=== PATIENT | female | born 1955 | race Caucasian/White ===

== ENCOUNTER 2018-10-18 10:57 | Outpatient (CLI) | payer BC, MEDICAID ==
[~2018-10-18] VITALS: Ht 157.5 cm; Wt 79.4 kg
[~2018-10-18 10:57] MED LIST: ONDA4TAB6 PO
[2018-10-18] MEDS ORDERED: OXYB10TA4 PO (11:57)
[2018-10-18] MEDS ORDERED: OMEP20TA23 PO (11:57)
[2018-10-18] MEDS ORDERED: INSU100V9 SQ (11:57)
[2018-10-18] MEDS ORDERED: ESCI10TA PO (11:57)
[2018-10-18] MEDS ORDERED: TRAZ150T78 PO (11:57)
[2018-10-18 12:09] LABS: BASOPHILS # (AUTO) 0.1 X10'3 (0-0.2); BASOPHILS % (AUTO) 0.6 % (0-1); EOSINOPHILS # (AUTO) 0.1 X10'3 (0-0.9); EOSINOPHILS % (AUTO) 0.7 % (0-6); LYMPHOCYTES # (AUTO) 1.4 X10'3 (1.1-4.8); LYMPHOCYTES % (AUTO) 13.2 % (21-51); MEAN CORPUSCULAR HEMOGLOBIN 29.7 PG (27.0-31.0); MEAN CORPUSCULAR HGB CONC 33.7 g/dL (33.0-36.5); MEAN CORPUSCULAR VOLUME 87.9 FL (78-98); MEAN PLATELET VOLUME 8.7 FL (7.4-10.4); MONOCYTES # (AUTO) 0.7 X10'3 (0-0.9); MONOCYTES % (AUTO) 6.2 % (2-12); NEUTROPHILS # (AUTO) 8.5 X10'3 (1.8-7.7); NEUTROPHILS % (AUTO) 79.3 % (42-75); PRE OP HEMATOCRIT 36.4 % (35.0-45.0); PRE OP HEMOGLOBIN 12.3 g/dL (12.0-16.0); PRE OP PLATELET COUNT 260 X10'3 (140-440); RED BLOOD COUNT 4.14 X10'6 (4.20-5.60)
[2018-10-18 12:23] LABS: HEMOGLOBIN A1C 13.1 % (4.5-6.2)
[2018-10-18 12:34] LABS: ALBUMIN 2.9 G/DL (3.4-5.0); ALBUMIN/GLOBULIN RATIO 0.8 (1.1-1.5); ALKALINE PHOSPHATASE 70 IU/L (46-116); BLOOD UREA NITROGEN 9 MG/DL (7-18); BUN/CREATININE RATIO 9.1 (6.6-38.0); CALCIUM 8.7 MG/DL (8.5-10.1); CHLORIDE 100 MMOL/L (99-107); CREATININE 0.99 MG/DL (0.40-0.90); PRE OP ALT 23 U/L (30-65); PRE OP ANION GAP 5 (8-16); PRE OP AST 18 U/L (10-37); PRE OP BILIRUB, TOTAL 0.3 MG/DL (0.0-1.0); PRE OP POTASSIUM 4.3 MMOL/L (3.4-5.1); PRE OP SODIUM 137 MMOL/L (135-145); TOTAL CARBON DIOXIDE 32.5 MMOL/L (24-32); TOTAL PROTEIN 6.6 G/DL (6.4-8.2); eGFR 57 ML/MIN
[2018-10-18 12:37] LABS: PRE OP GLUCOSE 332 MG/DL (70-104)
[2018-10-18 12:41] LABS: CLARITY,URINE SLIGHTLY CLOUDY (Clear); COLOR,URINE YELLOW (Yellow); GLUCOSE, URINE >=1000 mg/dl (Neg); KETONES,URINE NEGATIVE (Neg); LEUKOCYTE ESTERASE ,URINE NEGATIVE (Neg); NITRITES, URINE NEGATIVE (Neg); OCCULT BLOOD,URINE MODERATE (Neg); PROTEIN,URINE >=300 mg/dl (Neg); UROBILINOGEN,URINE 0.2 E.U/dL (0.2-1.0)
[2018-10-18 12:54] LABS: UA COLLECTION TYPE NON-SPECIFIED
[2018-10-18 13:05] LABS: HYALINE CASTS 0-3 /LPF (NEGATIVE); MUCUS STRANDS NONE SEEN /LPF (Neg); SQUAMOUS EPITHELIAL CELL,UR MANY /LPF (FEW)
[2018-10-18 13:06] LABS: BACTERIA,URINE 1+ /HPF (Neg); RBC,URINE 0-2 /HPF (0-2); WBC,URINE 0-4 /HPF (0-4)
[2018-10-24] MEDS ORDERED: ceFOXitin 2 GM ADDVANTGE BAG 50 ML IV ONE (06:00)
[2018-10-24] MEDS ORDERED: ringers solution, lacted 1,000 ML IV SCH (06:00)
[2018-10-24] MEDS ORDERED: famotidine 20mg tablet PO ONE (06:00)
== END 2018-10-18 23:59 | disposition home or self-care (01) ==
LOC: PRE-OP 10:57 → EDSTATUS 10-24 22:00
PROVIDERS: ATTEND Surgery
DX: Z01.818 Encounter for other preprocedural examination (principal); K80.20 Calculus of gallbladder without cholecystitis without obstruction; Z87.891 Personal history of nicotine dependence
CPT/HCPCS: 36415; 80053; 81001; 83036; 85025; J0694; J7120

== ENCOUNTER 2018-11-07 10:49 | Day surgery (SDC) | payer BC, MEDICAID ==
[~2018-11-07] VITALS: Ht 157.5 cm; Wt 82.1 kg
[~2018-11-07 10:49] MED LIST changes: +ESCI10TA PO; +INSU100V9 SQ; +OMEP20TA23 PO; -ONDA4TAB6 PO; +OXYB10TA4 PO; +TRAZ150T78 PO
[2018-11-07 11:03] VITALS: BP 164/81
[2018-11-07] MEDS ORDERED: ceFOXitin 2 GM ADDVANTGE BAG 50 ML IV ONE (11:30)
[2018-11-07] MEDS ORDERED: ringers solution, lacted 1,000 ML IV SCH (11:30)
[2018-11-07] MEDS ORDERED: famotidine 20mg tablet PO ONE (11:30)
[2018-11-07] MEDS ORDERED: LISI10TA4 PO (11:39)
[2018-11-07] MEDS ORDERED: METO-467 PO (11:39)
[2018-11-07 12:16] LABS: BASOPHILS # (AUTO) 0.1 X10'3 (0-0.2); BASOPHILS % (AUTO) 1.4 % (0-1); EOSINOPHILS # (AUTO) 0.2 X10'3 (0-0.9); EOSINOPHILS % (AUTO) 1.8 % (0-6); LYMPHOCYTES # (AUTO) 1.8 X10'3 (1.1-4.8); LYMPHOCYTES % (AUTO) 18.5 % (21-51); MEAN CORPUSCULAR HEMOGLOBIN 29.8 PG (27.0-31.0); MEAN CORPUSCULAR VOLUME 87.7 FL (78-98); MEAN PLATELET VOLUME 9.2 FL (7.4-10.4); MONOCYTES # (AUTO) 0.7 X10'3 (0-0.9); MONOCYTES % (AUTO) 7.8 % (2-12); NEUTROPHILS # (AUTO) 6.7 X10'3 (1.8-7.7); NEUTROPHILS % (AUTO) 70.5 % (42-75); PRE OP HEMATOCRIT 35.8 % (35.0-45.0); PRE OP HEMOGLOBIN 12.2 g/dL (12.0-16.0); PRE OP PLATELET COUNT 226 X10'3 (140-440); RED BLOOD COUNT 4.08 X10'6 (4.20-5.60); RED CELL DISTRIBUTION WIDTH 15.1 % (11.5-14.5)
[2018-11-07 12:30] LABS: ALBUMIN 3.2 G/DL (3.4-5.0); ALBUMIN/GLOBULIN RATIO 0.9 (1.1-1.5); ALKALINE PHOSPHATASE 71 IU/L (46-116); BLOOD UREA NITROGEN 11 MG/DL (7-18); BUN/CREATININE RATIO 14.9 (6.6-38.0); CALCIUM 8.9 MG/DL (8.5-10.1); CHLORIDE 106 MMOL/L (99-107); CREATININE 0.74 MG/DL (0.40-0.90); PRE OP ALT 16 U/L (30-65); PRE OP ANION GAP 7 (8-16); PRE OP BILIRUB, TOTAL 0.4 MG/DL (0.0-1.0); PRE OP GLUCOSE 108 MG/DL (70-104); PRE OP SODIUM 144 MMOL/L (135-145); TOTAL CARBON DIOXIDE 30.6 MMOL/L (24-32); TOTAL PROTEIN 6.6 G/DL (6.4-8.2); eGFR 80 ML/MIN
[2018-11-07 12:31] LABS: PRE OP AST 20 U/L (10-37)
[2018-11-07] MEDS ORDERED: ceFAZolin 1000mg inj ONE (13:35)
[2018-11-07] MEDS ORDERED: BUPIVAcaine/PF 2.5 mg/ml (0.25%) 30ml vial ONE (13:35)
[2018-11-07] MEDS ORDERED: glycopyrrolate 0.2mg/ml inj ONE (13:45)
[2018-11-07] MEDS ORDERED: ketorolac trometh. 30mg/ml inj. ONE (13:45)
[2018-11-07] MEDS ORDERED: ondansetron/PF 4mg/2ml inj ONE (13:45)
[2018-11-07] MEDS ORDERED: sevoflurane 250ml liquid IH ONE (13:45)
[2018-11-07] MEDS ORDERED: neostigmine methylsulfate 1 MG/ML 10ml vial ONE (13:45)
[2018-11-07] MEDS ORDERED: dexamethasone sod phosphate 10mg/ml inj ONE (13:45)
[2018-11-07] MEDS ORDERED: midazolam 2 mg/2 ml injection ONE (13:56)
[2018-11-07] MEDS ORDERED: LIDOcaine 2% (20mg/ml) 5ml vial ONE (13:56)
[2018-11-07] MEDS ORDERED: propofol inj 20 ML IV ONE (13:56)
[2018-11-07] MEDS ORDERED: fentaNYL/PF 50MCG/1 ML 2ML syringe ONE (13:56)
[2018-11-07] MEDS ORDERED: rocuronium 10mg/ml inj IV ONE (14:02)
--- NOTE | 2018-11-07 14:32 | NUR ---
LÓEN THORNTON. APPROX 1/". DR HANNA IN TO EXAMINE PT
[2018-11-07] MEDS ORDERED: acetaminophen 1,000mg/100ml IV 100 ML IV ONE (14:36)
[2018-11-07 15:15] VITALS: BP 172/103
--- NOTE | 2018-11-07 15:15 | NUR ---
Received from OR via BED , accompanied by Anesthesiologist DR WALTERS and report given by Anesthesiolgist. PATIENT WAKING UP, DENIES PAIN, V/S WNL, NEUROVASCULAR CHECKS INTACT, 20G PIV RUE, SCD ON, BANDAIDS TO LAP SIGHTS OF ABDOMEN AND 4X4 DRESSING CDI.
[2018-11-07 15:25] VITALS: BP 172/77
[2018-11-07 15:35] VITALS: BP 156/75
[2018-11-07 15:45] VITALS: BP 141/72
[2018-11-07 15:55] VITALS: BP 138/69
--- NOTE | 2018-11-07 15:55 | NUR ---
PATIENT A&OX4, DENIES PAIN, V/S WNL, NEUROVASCULAR CHECKS INTACT, 20G PIV RUE D/C, SCD OFF, BANDAIDS TO LAP SIGHTS OF ABDOMEN AND 4X4 DRESSING CDI. . I HAVE REVIEWED D/C INSTRUCTIONS WITH PATIENT AND FAMILY AND THEY HAVE VERBALIZED UNDERSTANDING. PATIENT D/C HOME WITH FAMILY TO TRANSPORT AND ALL BELONGINGS..
[2018-11-07] MEDS ORDERED: NYSTATIN CREAM - 30GM TUBE TP SCH (21:00)
== END 2018-11-07 15:55 | disposition home or self-care (01) ==
LOC: PAS 10:49
PROVIDERS: ATTEND Surgery
DX: K80.10 Calculus of gallbladder with chronic cholecystitis without obstruction (principal); I10 Essential (primary) hypertension; F32.9 Major depressive disorder, single episode, unspecified; F41.9 Anxiety disorder, unspecified; E11.9 Type 2 diabetes mellitus without complications; I25.10 Atherosclerotic heart disease of native coronary artery without angina pectoris; Z87.891 Personal history of nicotine dependence; Z79.84 Long term (current) use of oral hypoglycemic drugs; Z79.899 Other long term (current) drug therapy; Z83.3 Family history of diabetes mellitus; Z82.49 Family history of ischemic heart disease and other diseases of the circulatory system
CPT/HCPCS: 36415; 47562; 80053; 82948; 85025; J0131; J0690; J0694; J2001; J2250; J2704; J3010; J3490; A4215; A4618; A7000; J1100; J1885; J2405; J2710; J7120